=== PATIENT | female | born 1980 | race Caucasian/White ===

== ENCOUNTER 2017-11-15 06:17 | Emergency (ER) | payer OTHER ==
[2017-11-15] MEDS ORDERED: SODIUM CHLORIDE 0.9% 50 ML IV ONE (06:39)
[2017-11-15] MEDS ORDERED: CEFTRIAXONE SODIUM 1 GM ONE (06:39)
[2017-11-15 06:53] LABS: APPEARANCE,URINE Turbid (CLEAR); BILIRUBIN,URINE Negative (NEGATIVE); COLOR,URINE Orange (YELLOW); GLUCOSE, URINE (UA) >=1000 mg/dL (NEGATIVE); KETONES,URINE Negative (NEGATIVE); LEUKOCYTE ESTERASE ,URINE Moderate (NEGATIVE); NITRATE,URINE Negative (NEGATIVE); OCCULT BLOOD,URINE Large (NEGATIVE); PH,URINE 5.5 (5.0-8.0); PROTEIN,URINE POS 1+ (NEGATIVE); UROBILINOGEN,URINE 0.2 mg/dL (0.2-1.0)
[2017-11-15 07:17] LABS: BACTERIA,URINE Few /HPF (None Seen); RBC,URINE TNTC /HPF (0-1); SQUAMOUS EPITHELIAL CELL,UR Few /HPF (0-2); WBC,URINE TNTC /HPF (0-1)
== END 2017-11-15 07:01 | disposition home or self-care (01) ==
LOC: EDH 06:17
DX: N39.0 Urinary tract infection, site not specified (principal); E11.9 Type 2 diabetes mellitus without complications
CPT/HCPCS: 81001; 81025; 96374; 99284; J0696

== ENCOUNTER 2018-08-05 20:03 | Emergency (ER) | payer OTHER ==
[2018-08-05 20:37] LABS: BASOPHILS % (AUTO) 0.5 % (0.0-5.0); EOSINOPHILS % (AUTO) 1.8 % (0.0-8.0); HEMATOCRIT 43.8 % (36-48); LYMPHOCYTES % (AUTO) 4.4 % (21.0-51.0); MEAN CORPUSCULAR HEMOGLOBIN 29.1 pg (27.0-33.0); MEAN CORPUSCULAR HGB CONC 34.9 g/dL (32.0-36.0); MEAN CORPUSCULAR VOLUME 83.3 fL (79-99); MONOCYTES % (AUTO) 3.8 % (3.0-13.0); NEUTROPHILS % (AUTO) 89.5 % (40.0-77.0); PLATELET COUNT (AUTO) 190 K/uL (130-400); RED BLOOD CELL COUNT(AUTO) 5.27 MIL/uL (4.00-5.50); RED CELL DISTRIBUTION WIDTH 12.6 % (11.0-15.5); WHITE BLOOD COUNT (AUTO) 9.1 K/uL (4.8-10.8)
[2018-08-05 20:53] LABS: INR 0.94 (0.85-1.15); PARTIAL THROMBOPLASTIN TIME 24.4 SEC (26.3-35.5); PROTHROMBIN TIME 9.9 SEC (9.6-11.6)
[2018-08-05 21:09] LABS: CREATININE 0.6 mg/dL (0.5-1.5); POTASSIUM 3.6 mmol/L (3.5-5.1)
[2018-08-05 21:13] LABS: ALBUMIN 3.4 g/dL (3.5-5.0); BILIRUBIN,TOTAL 0.7 mg/dL (0.2-1.0); TOTAL PROTEIN, SERUM 6.4 g/dL (6.0-8.3)
[2018-08-05 21:19] LABS: AMYLASE 25 U/L (25-115); LIPASE 112 U/L (114-286)
[2018-08-05] MEDS ORDERED: SODIUM CHLORIDE 0.9% 1000ML 1,000 ML IV ONE (21:32)
[2018-08-05 22:10] LABS: APPEARANCE,URINE Clear (CLEAR); BILIRUBIN,URINE Negative (NEGATIVE); COLOR,URINE Yellow (YELLOW); GLUCOSE, URINE (UA) >=1000 mg/dL (NEGATIVE); KETONES,URINE >=80 mg/dL (NEGATIVE); LEUKOCYTE ESTERASE ,URINE Negative (NEGATIVE); NITRATE,URINE Negative (NEGATIVE); OCCULT BLOOD,URINE Negative (NEGATIVE); PROTEIN,URINE Negative (NEGATIVE)
[2018-08-05 22:13] LABS: HCG,QUAL RESULT NEGATIVE (NEGATIVE)
[2018-08-05 22:15] LABS: AMPHET/METH SCREEN,URINE NEGATIVE (NEGATIVE); BARBITURATE SCREEN, URINE NEGATIVE (NEGATIVE); BENZODIAZEPINES SCREEN,URINE NEGATIVE (NEGATIVE); CANNABINOID SCREEN,URINE NEGATIVE (NEGATIVE); COCAINE SCREEN,URINE NEGATIVE (NEGATIVE); OPIATE SCREEN,URINE NEGATIVE (NEGATIVE); PHENCYCLIDINE SCREEN,URINE NEGATIVE (NEGATIVE)
[2018-08-05] MEDS ORDERED: ASPIRIN 325 MG TABLET ONE (22:20)
[2018-08-05 22:41] LABS: BACTERIA,URINE None Seen /HPF (None Seen); RBC,URINE 0-1 /HPF (0-1); WBC,URINE None Seen /HPF (0-1); YEAST,URINE BUDDING None Seen /HPF (None Seen)
[2018-08-05 22:42] LABS: SQUAMOUS EPITHELIAL CELL,UR Rare /HPF (0-2)
== END 2018-08-05 22:56 | disposition home or self-care (01) ==
LOC: EDH 20:03
DX: E11.65 Type 2 diabetes mellitus with hyperglycemia (principal); R07.89 Other chest pain
CPT/HCPCS: 36415; 71045; 80053; 80305; 81001; 81025; 82150; 82550; 83690; 84484; 84702; 85025; 85610; 85730; 93005; 96360; 99285; J7030

== ENCOUNTER 2019-02-11 20:08 | Emergency (ER) | payer SELFPAY ==
[2019-02-11 22:13] LABS: RAPID GROUP A STREP NEGATIVE (NEGATIVE)
== END 2019-02-11 22:30 | disposition home or self-care (01) ==
LOC: EDH 20:08
DX: J09.X2 Influenza due to identified novel influenza A virus with other respiratory manifestations (principal); E11.9 Type 2 diabetes mellitus without complications
CPT/HCPCS: 71046; 87804; 87880; 93005

== ENCOUNTER 2019-02-20 00:16 | Emergency (ER) | payer SELFPAY ==
[2019-02-20] MEDS ORDERED: ASPIRIN 325 MG TABLET ONE (00:43)
[2019-02-20 00:55] LABS: APPEARANCE,URINE Clear (CLEAR); BILIRUBIN,URINE Negative (NEGATIVE); COLOR,URINE Yellow (YELLOW); GLUCOSE, URINE (UA) >=1000 mg/dL (NEGATIVE); KETONES,URINE Negative (NEGATIVE); LEUKOCYTE ESTERASE ,URINE Negative (NEGATIVE); NITRATE,URINE Negative (NEGATIVE); OCCULT BLOOD,URINE Moderate (NEGATIVE); PROTEIN,URINE Trace mg/dL (NEGATIVE); UROBILINOGEN,URINE 0.2 mg/dL (0.2-1.0)
[2019-02-20 00:59] LABS: HCG,QUAL RESULT NEGATIVE (NEGATIVE)
[2019-02-20 01:14] LABS: BASOPHILS % (AUTO) 0.8 % (0.0-5.0); EOSINOPHILS % (AUTO) 4.9 % (0.0-8.0); HEMATOCRIT 38.1 % (36-48); MEAN CORPUSCULAR HEMOGLOBIN 28.6 pg (27.0-33.0); MEAN CORPUSCULAR HGB CONC 35.4 g/dL (32.0-36.0); MEAN CORPUSCULAR VOLUME 80.7 fL (79-99); MONOCYTES % (AUTO) 8.7 % (3.0-13.0); NEUTROPHILS % (AUTO) 55.7 % (40.0-77.0); PLATELET COUNT (AUTO) 280 K/uL (130-400); RED BLOOD CELL COUNT(AUTO) 4.72 MIL/uL (4.00-5.50); RED CELL DISTRIBUTION WIDTH 12.6 % (11.0-15.5); WHITE BLOOD COUNT (AUTO) 6.3 K/uL (4.8-10.8)
[2019-02-20 01:15] LABS: CREATININE 0.9 mg/dL (0.5-1.5); POTASSIUM 3.6 mmol/L (3.5-5.1)
[2019-02-20 01:16] LABS: INR 0.94 (0.85-1.15); PARTIAL THROMBOPLASTIN TIME 24.5 SEC (26.3-35.5); PROTHROMBIN TIME 9.9 SEC (9.6-11.6)
[2019-02-20 01:21] LABS: ALBUMIN 3.8 g/dL (3.5-5.0); BILIRUBIN,TOTAL 0.2 mg/dL (0.2-1.0); TOTAL PROTEIN, SERUM 7.2 g/dL (6.0-8.3)
[2019-02-20 01:21] LABS: WBC,URINE 0-1 /HPF (0-1)
[2019-02-20 01:22] LABS: BACTERIA,URINE Rare /HPF (None Seen); SQUAMOUS EPITHELIAL CELL,UR Moderate /HPF (0-2)
[2019-02-20] MEDS ORDERED: ALBUTEROL SULFATE 0.083% 2.5 MG/3 ML INH IH ONE (02:09)
[2019-02-20] MEDS ORDERED: LIDOCAINE HCL 2% VISCOUS 15 ML UDCUP ONE (04:07)
[2019-02-20] MEDS ORDERED: MAG HYDROX/AL HYDROX/SIMETH ES 30 ML SUSP UDCUP ONE (04:07)
[2019-02-20] MEDS ORDERED: SODIUM CHLORIDE 0.9% 1000ML 1,000 ML IV ONE (04:08)
[2019-02-20] MEDS ORDERED: ORPHENADRINE CITRATE 30 MG/ML ML ONE (04:08)
[2019-02-20] MEDS ORDERED: KETOROLAC TROMETHAMINE 30MG/ML ONE (04:08)
== END 2019-02-20 05:29 | disposition home or self-care (01) ==
LOC: EDH 00:16
DX: R07.89 Other chest pain (principal); R05 Cough; K22.4 Dyskinesia of esophagus; E11.9 Type 2 diabetes mellitus without complications; Z98.890 Other specified postprocedural states
CPT/HCPCS: 36415; 71045; 80053; 81001; 81025; 82550; 84484; 85025; 85610; 85730; 93005; 94640; 96374; 96375; 99285; J1885; J2360; J7030